=== PATIENT | male | born 1935 | race Hispanic/Latino ===

== ENCOUNTER → 2018-02-10 | Day surgery (SDC) | payer MEDICARE ==
[2018-02-03 12:48] LABS: BASOPHILS % 0.4 % (0.0-1.0); EOSINOPHILS # (AUTO) 0.1 (0.0-0.4); EOSINOPHILS % 1.7 % (0.0-6.0); HEMATOCRIT 40.6 % (38.2-49.6); HEMOGLOBIN 13.2 g/dL (14.0-18.0); LYMPHOCYTES # (AUTO) 2.5 (1.0-3.2); LYMPHOCYTES % 32.2 % (18.0-39.1); MEAN CORPUSCULAR HEMOGLOBIN 29.9 pg (28-32); MEAN CORPUSCULAR HGB CONC 32.5 g/dL (31-35); MEAN CORPUSCULAR VOLUME 92.1 fL (81-99); MONOCYTES # (AUTO) 0.8 (0.2-0.8); MONOCYTES % 10.8 % (4.4-11.3); NEUTROPHILS # (AUTO) 4.2 (2.1-6.9); NEUTROPHILS % 54.8 % (38.7-80.0); PLATELET COUNT 164 x10e3/uL (140-360); RED BLOOD COUNT 4.41 x10e6/uL (4.3-5.7); RED CELL DISTRIBUTION WIDTH 13.7 % (11.7-14.4)
[~2018-02-10] MED LIST: ASPIR 8181 MG PO; METOPROLOL TART25 MG PO; PROPOFOL IV EMULSION 10 MG/ML 50 ML VIAL ONE; SIMVASTATIN40 MG PO
--- OUTSIDE RECORDS SUMMARY | 2018-02-10 05:25 | XMS REPORT | Clinical Summary ---
Author Author [facility] Organization [facility] Address Unknown Phone Unavailable Care Team Providers Care Toll Mechanic Name Role Phone Isabell Perez PCP Unavailable Allergies No Known Allergies Medications End Date Status Medication Sig Dispensed Refills Start Date Active metoprolol (LOPRESSOR) 25 Take 25 mg by 0 MG tablet mouth 2 (two) times daily. Active simvastatin (ZOCOR) 40 MG Take 40 mg by 0 tablet mouth nightly. Active Problems Problem Noted Date Cholecystitis 08/29/2015 Gallstones 08/27/2015 Social History Date Tobacco Use Types Packs/Day Years Used Never Smoker Smokeless Tobacco: Never Used Alcohol Use Drinks/Week oz/Week Comments No Sex Assigned at Date Recorded Not on file Industry Job Start Date Occupation Not on file Not on file Not on file Travel End Travel History Travel Start No recent travel history available. Last Filed Vital Signs Not on file Plan of Treatment Not on file Results Not on fileafter 02/09/2017 Insurance Payer Benefit Subscriber ID Type Phone Address Plan / Group MEDICARE MEDICARE A xxxxxxxxxx Medicare B MEDICAID MEDICAID xxxxxxxxx Medicaid OF [place] Advance Directives For more information, please contact: [facility] [address] [place] [address] Date Inactivated Comments Code Status Date Activated 08/27/2015 12:47 PM Full Code 08/27/2015 7:24 AM This code status was determined by: Patient
--- OUTSIDE RECORDS SUMMARY | 2018-02-10 05:25 | XMS REPORT | Clinical Summary ---
Author Author [facility] Address Unknown Phone Unavailable Care Team Providers Care Union Laborer Name Role Phone Isabell Perez MD PCP Allergies Not on File Medications Not on file Active Problems Not on file Social History Date Tobacco Use Types Packs/Day Years Used Never Assessed Sex Assigned at Date Recorded Not on file Industry Job Start Date Occupation Not on file Not on file Not on file Travel End Travel History Travel Start No recent travel history available. Last Filed Vital Signs Not on file Plan of Treatment Health Maintenance Due Date Last Done Comments SHINGRIX VACCINE (1 of 2) 1984 ZOSTER VACCINE 1994 PNEUMOCOCCAL 08/17/1999 POLYSACCHARIDE VACCINE AGE 65 AND OVER PNEUMOCOCCAL-13 08/17/1999 INFLUENZA VACCINE 09/29/2017 Results Not on fileafter 02/09/2017 Insurance Payer Benefit Subscriber ID Type Phone Address Plan / Group MEDICARE MEDICARE xxxxxxxxxx Medicare [place] A [place] B MEDICAID MEDICAID xxxxxxxxx Medicaid Advance Directives Patient has advance care planning documents on file. For more information, mary lou luke contact: Harry Montiel [address] [place] [address]
--- OUTSIDE RECORDS SUMMARY | 2018-02-10 05:26 | XMS REPORT | Continuity of Care Document ---
Author Author [facility] Interface Address Unknown Phone Unavailable Problems Problem Status Onset Date Classification Date Reported Comments Source DIZZINESSM ACUTE CONFUSION Active 10/26/2017 [facility] STROKE LIKE SYMPTOMS Active 10/26/2017 [facility] FEVER / URINARY SYMPTOMS Active 12/17/2016 [facility] COMPLICATED UTI Active 12/17/2016 [facility] Insomnia<sup>6</sup> Active 04/05/2014 Problem 10/13/2017 Data migrated from [employer] on 09/05/14. [facility] Insomnia<sup>7</sup> Active 04/05/2014 Problem 12/24/2016 Data migrated from [employer] on 09/05/14. [facility] Chronic kidney disease stage 3<sup>3</sup> Active 11/02/2013 Problem 12/24/2016 Data migrated from [employer] on 07/28/14. [facility] Dermatitis<sup>3</sup> Active 04/05/2013 Problem 10/13/2017 Data migrated from [employer] on 07/28/14. [facility] Dermatitis<sup>4</sup> Active 04/05/2013 Problem 12/24/2016 Data migrated from [employer] on 07/28/14. [facility] BACK PAIN Active 06/06/2012 [facility] ABDOMINAL PAIN/BACK PAIN Active 05/04/2012 [facility] Aneurysm of aorta Resolved Problem [facility]/13[facility]<sup>1, 2</sup> Resolved Problem 10/13/2017 Data migrated from [employer] on 09/14/14. [facility] Bladder cancer Resolved Problem 10/13/2017 [facility] CKD , stage III(<span ID="[id number]">Confirmed</span>) Active Problem 10/13/2017 [facility] Deficiency of vitamin B12 Active Problem 10/13/2017 [facility] Essential hypertension<sup>4</sup> Active Problem 10/13/2017 Data migrated from [employer] on 07/28/14. [facility] History of aortic aneurysm repair Active Problem 10/13/2017 [facility] History of bladder cancer Active Problem 10/13/2017 [facility] History of renal carcinoma Active Problem 10/13/2017 [facility] Hyperlipidemia<sup>5</sup> Active Problem 10/13/2017 Data migrated from [employer] on 07/28/14. [facility] Cancer of right kidney. Resolved Problem 10/13/2017 [facility] Colon polyp Active Problem 10/13/2017 [facility] Prediabetes Active Problem 10/13/2017 [facility] Spinal stenosis<sup>7</sup> Active Problem 10/13/2017 Data migrated from [employer] on 07/28/14. [facility] Vitamin D deficiency Active Problem 10/13/2017 [facility] Aneurysm of aorta Resolved Problem 06/08/2012 [facility] Bladder cancer Resolved Problem 06/08/2012 [facility] Hypertension Active Problem 06/08/2012 [facility] Essential hypertension<sup>5</sup> Active Problem 12/24/2016 Data migrated from [employer] on 07/28/14. [facility] Hyperlipidemia<sup>6</sup> Active Problem 12/24/2016 Data migrated from [employer] on 07/28/14. [facility] Spinal stenosis<sup>8</sup> Active Problem 12/24/2016 Data migrated from [employer] on 07/28/14. [facility] URINARY TRACT INFECTION, SITE NOT SPECIF Active [facility] Medications Medication Details Route Status Patient Instructions Ordering Provider Order Date Source simvastatin 20 mg oral tablet 20 mg=1 tab, PO, Bedtime, # 90 tab, 1 Refill(s), Pharmacy: [facility]/pharmacy #[id number], dose decrease 40 from 20 mg Active 09/07/2017 [facility] metoprolol 25 mg oral tablet, extended release 25 mg=1 tab, PO, BID, # 180 tab, 1 Refill(s), Pharmacy: [facility]pharmacy #[id number] Active 09/07/2017 [facility] metoprolol 25 mg oral tablet, extended release 25 mg=1 tab, PO, BID, # 180 tab, 1 Refill(s), Pharmacy: [facility]/pharmacy #[id number] Active 02/02/2017 [facility] simvastatin 20 mg oral tablet 20 mg=1 tab, PO, Bedtime, # 90 tab, 1 Refill(s), Pharmacy: [facility]/pharmacy #[id number], dose decrease 40 from 20 mg Active 02/02/2017 [facility] Streptococcus pneumoniae serotype 1 capsular antigen diphtheria [id number] protein conjugate vaccine / Streptococcus pneumoniae serotype 14 capsular antigen diphtheria [id number] protein conjugate vaccine / Streptococcus pneumoniae serotype 18C capsular antigen d 0.5 mL, Route: IM, Drug Form: INJ, Daily, Start date: 12/21/16 14:45:00 CDT, Duration: 1 doses or times, Stop date: 12/21/16 14:45:00 CDTNotes: Shake well prior to use (Same as: Prevnar 13) Inactive 12/21/2016 [facility] amoxicillin 500 mg oral capsule 500 mg=1 cap, PO, TID, X 5 day, # 15 cap, 0 Refill(s), [id number] Active 12/21/2016 [facility] cefepime 1 gm, Route: IVPB, Q12H, Dosing Weight 73.182, kg, (CrCl >/=50 ml/min), Start date: 12/17/16 21:00:00 CDT, Duration: 5 day, Stop date: 12/22/16 9:00:00 CDT, ABX Indication: Urinary Tract Infection Inactive 12/18/2016 [facility] Simvastatin 40 mg, 1 tab, Route: PO, Drug form: TAB, Bedtime, Dosing Weight 73.182, kg, Start date: 12/17/16 21:00:00 CDT, Duration: 30 day, Stop date: 01/15/17 21:00:00 CSTNotes: (Same as: Zocor) No Longer Active 12/18/2016 [facility] cefepime 1 gm, Route: IV, [id number], Dosing Weight 73.182, kg, Start date: 12/17/16 20:00:00 CDT, Duration: 30 day, Stop date: 01/16/17 8:00:00 [employer]AL [employer]EL[employer], ABX Indication: Urinary Tract InfectionNotes: (Same As: Maxipime) MEDICATION WASTE Product Size: 1000 mg Product Wasted: ___ 0mg No Longer Active 12/18/2016 [facility] Docusate 100 mg, 1 cap, Route: PO, Drug form: CAP, BID, Dosing Weight 73.182, kg, Start date: 12/17/16 17:00:00 CDT, Duration: 30 day, Stop date: 01/16/17 9:00:00 CSTNotes: (Same as: Colace) (Do Not Crush) No Longer Active 12/17/2016 [facility] metoprolol extended release 25 mg, 1 tab, Route: PO, Drug form: ERTAB, BID, Start date: 12/17/16 17:00:00 CDT, Duration: 30 day, Stop date: 01/16/17 9:00:00 CSTNotes: (Same as: Toprol XL) Do Not Crush No Longer Active 12/17/2016 [facility] Vancomycin 1 ea, Route: MISC, ONCALL, Dosing Weight 73.182, kg, Start date: 12/17/16 16:00:00 CDT, day, Stop date: 12/17/16 16:00:00 CDT, Pharmacy to dose, ABX Indication: Urinary Tract Infection Inactive 12/17/2016 [facility] sodium chloride 0.9% 1000 ml INJ 1,000 mL 1,000 mL, Rate: 100 ml/hr, Infuse over: 10 hr, Route: IV, Dosing Weight 73.182 kg, Total Volume: 1,000, Start date: 12/17/16 15:36:00 CDT, Duration: 30 day, Stop date: 01/16/17 15:35:00 [employer] 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 12/17/2016 [facility] Ondansetron 4 mg, 2 mL, Route: IVP, Drug form: INJ, Q6H, Dosing Weight 73.182, kg, PRN Nausea & Vomiting, Start date: 12/17/16 15:35:00 CDT, Duration: 30 day, Stop date: 01/16/17 15:34:00 CSTNotes: (Same as: Zofran) MEDICATION WASTE Product Size: 4 mg Product Wasted: _0__ mg No Longer Active 12/17/2016 [facility] Acetaminophen 325 MG / Hydrocodone Bitartrate 5 MG Oral Tablet 1 tab, Route: PO, Drug Form: TAB, Dosing Weight 73.182, kg, Q4H, PRN Pain Score 4-6, Start date: 12/17/16 15:35:00 CDT, Duration: 30 day, Stop date: 01/16/17 15:34:00 CSTNotes: (Same as: Badger 325/5) Do not exceed 4gm/day of acetaminophen. No Longer Active 12/17/2016 [facility] cefepime 1 gm, Route: IVPB, ONCE, Dosing Weight 73.182, kg, Priority: STAT, Start date: 12/17/16 11:32:00 CDT, Duration: 1 doses or times, Stop date: 12/17/16 11:32:00 CDT, ABX Indication: Urinary Tract Infectio nNotes: (Same As: Maxipime) MEDICATION WASTE Product Size: 1000 mg Product Wasted: ___ mg Inactive 12/17/2016 [facility] Sodium Chloride 0.9% (Bolus) IV 1,000 mL, Infuse Over: 1 hr, Route: IV, ONCE, Priority: STAT, Dosing Weight 73.182 kg, Start date: 12/17/16 10:30:00 CDT, Duration: 1 doses or times, Stop date: 12/17/16 10:30:00 CDT Inactive 12/17/2016 [facility] Badger 10/325 oral tablet 1 tab, PO, Q6H, PRN, 24 tab, for pain, Substitution Allowed, Maintenance PO Active [place]- [facility] 06/06/2012 [facility] cefpodoxime 200 mg oral tablet 200 mg, 1 tab, PO, Q12H, 20 tab, Substitution Allowed, TAB [facility] Badger 5/325 oral tablet 1 tab, PO, Q4-6H, PRN, 30 tab, Substitution Allowed, Maintenance PO Active 06/06/2012 [facility] nabumetone 500 mg oral tablet 500 mg, 1 tab, PO, BID, 180 tab, Substitution Allowed, TAB PO Active 06/06/2012 [facility] simvastatin PO, Daily, 30 tab, Substitution Allowed PO Active 06/06/2012 [facility] Badger 5/325 oral tablet 1 tab, PO, Q4-6H, PRN, 15 tab, as needed for pain, Substitution Allowed, Maintenance PO Active [place] 05/05/2012 [facility] Badger 5/325 oral tablet 1 tab, Route: PO, Drug Form: TAB, Dosing Weight 80, kg, ONCE, Start date: 05/04/12 21:00:00, Stop date: 05/04/12 21:00:00 PO No Longer Active [place] 05/05/2012 [facility] NS (Bolus) IV 1000 mL 1,000 mL, Rate: 1,000 ml/hr, Infuse over: 1 hr, Route: IV, kg, Total Volume: 1,000, Priority: STAT, Start date: 05/04/12 16:04:00, Duration: 1 doses or times, Stop date: 05/04/12 17:03:00, Bolus DoseBolus Dose IV No Longer Active [place] 05/04/2012 [facility] morphine Sulfate 4 mg, 1 mL, Route: IVP, Drug form: INJ, ONCE, Dosing Weight 80, kg, Priority: STAT, Start date: 05/04/12 16:04:00, Stop date: 05/04/12 16:04:00 IVP No Longer Active [place] 05/04/2012 [facility] Visipaque 320mg/ml 87 mL, Route: IVP, Drug Form: SOLN, Dosing Weight 80, kg, ONCALL, STAT, Start date: 05/04/12 13:00:00, Duration: 1 doses or times, Weight=75 - 94kg -- "To be infused by Radiology Staff ONLY"We ight=75 - 94kg -- "To be infused by Radiology Staff ONLY" IVP No Longer Active [place] 05/04/2012 [facility] morphine Sulfate 4 mg, 1 mL, Route: IVP, Drug form: INJ, ONCE, Dosing Weight 80, kg, Priority: STAT, Start date: 05/04/12 11:16:00, Stop date: 05/04/12 11:16:00 IVP No Longer Active [place] 05/04/2012 [facility] Saline Flush 0.9% 5 mL, Route: IVP, Drug Form: INJ, Dosing Weight 80, kg, PRN, PRN Line Flush, Start date: 05/04/12 11:16:00, Duration: 24 hr, Stop date: 05/05/12 11:15:00 IVP No Longer Active [place] 05/04/2012 [facility] Sodium Chloride 0.9% IV 1,000 mL 1,000 mL, Rate: 125 ml/hr, Infuse over: 8 hr, Route: IV, Total Volume: 1,000, Start date: 05/04/12 11:16:00, Duration: 30 day, Stop date: 06/03/12 11:15:00 IV No Longer Active [place] 05/04/2012 [facility] metoprolol tartrate Substitution Allowed Active 05/04/2012 [facility] Allergies, Adverse Reactions, Alerts Substance Category Reaction Severity Reaction type Status Date Reported Comments Source Immunizations Immunization Date Given Site Status Last Updated Comments Source pneumococcal 13-valent vaccine 12/21/2016 Left deltoid completed [facility] influenza virus vaccine, inactivated<sup>1</sup> 11/23/2016 Left Deltoid completed [facility] Result Comment: Patient natalee din room ten minutes no allergic reaction. [facility] influenza virus vaccine, inactivated 01/01/2016 Left Deltoid completed [facility] influenza virus vaccine, inactivated 12/06/2014 Left Deltoid completed [facility] influenza virus vaccine, inactivated<sup>2</sup> 11/29/2013 Right Deltoid completed [facility] Result Comment: fluzone high dose [[id number]]. Migrated from OBS ; Data migrated from [employer] on 04/02/2015. [facility] pneumococcal 23-valent vaccine<sup>3</sup> 06/29/2013 Left Deltoid completed [facility] Result Comment: pneumovax 23 [[id number]]. Migrated from OBS VIS: Pneumovax 23: 12-04-08 ; Data migrated from [employer] on 04/02/2015. [facility] Results Order Name Results Value Reference Range Date Interpretation Comments Source Carotid artery Doppler bilat US Carotid artery Doppler bilat US Study: Carotid artery Doppler bilat US 10/26/2017 4:15 PM CDT Clinical Indication: - stroke; Comparison: None. TECHNIQUE: Quinn-scale, color Doppler and spectral Doppler of the carotid arteries was performed. Any reported ICA stenoses indirectly reference the distal internal carotid diameter as the denominator for stenosis measurement, utilizing consensus panel criteria. FINDINGS: RIGHT: There is no visible plaque formation. ICA PSV 58 cm/sec CCA PSV 62 cm/sec ICA/CCA ratio 0.9 Vertebral flow is antegrade. LEFT: There is no visible plaque formation. ICA PSV 62 cm/sec CCA PSV 62 cm/sec ICA/CCA ratio 1 Vertebral flow is antegrade. IMPRESSION: 1. RIGHT: ICA stenosis less than 50 % by velocity criteria. 2. LEFT: ICA stenosis less than 50 % by velocity criteria. End Impression Consensus panel Doppler US criteria for diagnosis of ICA stenosis. Stenosis (%) ICA PSV (cm/sec) ICA/CCA ratio <50 <125 <2.0 50-69 125-230 2.0-4.0 >70 but less than >230 >4.0 near occlusion Near occlusion High, low, or undetectable Variable SL: [id number] 10/26/2017 - - Read by: Alex Garvey MD Dictated Date/time: 10/26/17 16:28 Electronically Signed by: Alex Garvey MD 10/26/17 16:29 FINAL REPORT [facility] Brain contrast MRA Brain wo contrast MRA Clinical Indication: - vertigo, ataxia; Comparison: None Technique: Magnetic resonance angiography of the [place] was performed without contrast. 3D reconstructed images were created. FINDINGS: The petrous, cavernous, ophthalmic and supraclinoid portions of the bilateral internal carotid arteries have normal caliber. The A1 and A2 segments of the bilateral anterior cerebral arteries are unremarkable. The M1 and M2 segments of bilateral middle cerebral arteries and branches have normal caliber. The anterior communicating artery is unremarkable. Bilateral vertebral arteries, basilar artery, and posterior cerebral arteries are unremarkable. The right vertebral artery is more prominent than the left. Posterior communicating arteries are unremarkable. There is no aneurysm, vascular malformation, or significant atherosclerotic disease. IMPRESSION: Unremarkable MR angiography of the [place]. SL: [id number] 10/26/2017 - - Read by: Jonathan Breaux MD Dictated Date/time: 10/26/17 22:44 Electronically Signed by: Jonathan Breaux MD 10/26/17 22:46 FINAL REPORT [facility] Brain wo contrast MRI Brain wo contrast MRI Clinical Indication: - vertigo, ataxia; Comparison: None TECHNIQUE: MRI of the brain is performed without gadolinium contrast with axial T1, T2, FLAIR and diffusion weighted imaging along with sagittal T2, and coronal T1 weighted imaging. FINDINGS: BRAIN PARENCHYMA: There is mild generalized cortical atrophy. Moderate nonspecific periventricular white matter foci of increased T2 and FLAIR signal are seen, likely related to small vessel disease. There is no mass effect or midline shift. There are no extra-axial fluid collection, or intraparenchymal hemorrhage. The corpus callosum appears normal. There is no diffusion weighted imaging or ADC map abnormality to suggest acute/subacute ischemia. . There is small susceptibility artifact visualized within the left subinsular cortex.. CEREBELLOPONTINE REGIONS AND SKULL BASE: The cerebellopontine angles appear unremarkable. The skull base, craniocervical junction, and brainstem region are normal. The optic chiasm is normal. The sellar and pineal regions are unremarkable. VENTRICLES: The ventricles are normal in size and configuration. The basilar cisterns are normal. VESSELS: The venous sinuses are grossly unremarkable. The expected intracranial flow voids are present. ORBITS, VISUALIZED PARANASAL SINUSES AND MASTOIDS: The visualized orbits and paranasal sinuses are unremarkable. The mastoid air cells are clear. IMPRESSION: 1. No acute intracranial abnormality without acute stroke, hemorrhage or mass. 2. Generalized brain parenchymal atrophy with associated nonspecific periventricular white matter disease changes/small vessel disease. 3. Small hemosiderin lesion visualized within the left subinsular cortex most likely representing a subclinical small hemorrhage. SL: [id number] 10/26/2017 - - Read by: Jonathan Breaux MD Dictated Date/time: 10/26/17 22:39 Electronically Signed by: Jonathan Breaux MD 10/26/17 22:42 FINAL REPORT [facility] Neck wo contrast MRA Neck wo contrast MRA Clinical Indication: - vertigo. Comparison: None Technique: Magnetic resonance angiography of the neck was performed without gadolinium contrast with time of flight technique. 3-D maximum intensity projection images were obtained. Full and complete MRA neck without contrast exam was performed. FINDINGS: The visualized origins of the great vessels are unremarkable. Bilateral common carotid arteries are widely patent. Bilateral internal carotid arteries and carotid bulb regions are patent without significant stenosis by NASCET criteria. Bilateral external carotid arteries are patent. Bilateral vertebral arteries are patent without stenosis. The source images show no evidence of carotid or vertebral artery dissection. Any reported ICA stenoses directly reference the distal internal carotid diameter as the denominator for stenosis measurement. (NASCET criteria) IMPRESSION: No significant carotid arterial stenosis by NASCET criteria. No significant vertebral artery stenosis. SL: [id number] 10/26/2017 - - Read by: Jyothi Rodriguez MD Dictated Date/time: 10/26/17 23:00 Electronically Signed by: Jyothi Rodriguez MD 10/26/17 23:04 FINAL REPORT [facility] Chest 1view DX Chest 1view DX EXAM: XR CHEST 1 VIEW DATE: 10/26/2017 12:36 PM CDT : 1935; Age: 82 years y/o Male INDICATION: - dizziness, confusion COMPARISON: 05/04/2012 TECHNIQUE: AP chest. FINDINGS/IMPRESSION: Lines, tubes and hardware: None. The heart size is normal for technique. The mediastinal contours are normal. Pulmonary vascularity is normal. Small granuloma within the right lung base otherwise lungs are clear. SL: [id number] 10/26/2017 - - Read by: Josephine Lester Dictated Date/time: 10/26/17 13:32 Electronically Signed by: Josephine Lester 10/26/17 13:33 FINAL REPORT [facility] Brain Stroke wo contrast CT Brain Stroke wo contrast CT Patient Name: ANNY PANDEY : 1935; Age: 82 years y/o Male MR: [id number] Study: Brain Stroke wo contrast CT 10/26/2017 12:36 PM CDT Ordering Physician: Humza Hurley Clinical Indication: - dizziness, confusion; Comparison: None TECHNIQUE: CT images were obtained from the foramen magnum to the vertex without the use of intravenous contrast on a multidetector CT. Coronal and sagittal reconstructions were obtained. CT imaging performed at this location utilizes radiation dose optimization techniques which include one or more of the following: -Automated exposure control -Adjustment of the mA and/or kV according to patient size -Use of iterative reconstruction technique CT Radiation Dose DLP 981 mGy-cm FINDINGS: There is no evidence of acute intracranial hemorrhage, subacute territorial infarct, mass effect, midline shift, hyperdense extra-axial fluid collection, hydrocephalus or other acute abnormalities. Minimal prominence of bifrontal extra-axial spaces likely related to volume loss, small subdural hygromas not excluded.. There is moderate generalized cerebral volume loss with associated ventricular prominence. There are moderate nonspecific supratentorial white matter ill- defined hypodensities likely representing chronic small vessel ischemic changes in this age. There are no chronic territorial infarcts. Multiple lacunar insults are seen in the frontoparietal white matter and basal ganglia. There are calcifications in the carotid siphons and intradural vertebral arteries. The calvarium, paranasal sinuses and mastoids are unremarkable. IMPRESSION: No evidence of acute intracranial hemorrhage. Moderate chronic microangiopathy. Multiple lacunar insults in the deep white matter and basal ganglia. Prominence of bifrontal extra-axial spaces likely related to volume loss, small subdural hygromas not excluded. The findings were called to Dr. Grayson in the ED at 1:17 PM on 10/26/2017. If there is further concern for intracranial pathology or acute stroke, further assessment with an MRI of the brain should be considered. SL: [id number] 10/26/2017 - - Read by: Malinda Hawkinsap Dictated Date/time: 10/26/17 13:13 Electronically Signed by: Malinda Hawkins 10/26/17 13:17 FINAL REPORT [facility] TOXICOLOGY Vanco Tr 7.5 ug/ml 12/19/2016 [facility] TOXICOLOGY Vanco Tr TND 1630 12/19/2016 [facility] CHEM PANEL eGFR 82 mL/min/1.73m2 12/19/2016 Result Comment: The eGFR is calculated using the CKD-EPI formula. In most young, healthy individuals the eGFR will be >90 mL/min/1.73m2. The eGFR declines with age. An eGFR of 60-89 may be normal in some populations, particularly the elderly, for whom the CKD-EPI formula has not been extensively validated. Use of the eGFR is not recommended in the following populations: Individuals with unstable creatinine concentrations, including patients and those with serious co-morbid conditions. Patients with extremes in muscle mass or diet. The data above are obtained from the National Kidney Disease Education Program (NKDEP) which additionally recommends that when the eGFR is used in patients with extremes of body mass index for purposes of drug dosing, the eGFR should be multiplied by the estimated BMI. [facility] CHEM PANEL Calcium Lvl 7.8 mg/dL 8.5 - 10.5 12/19/2016 [facility] CHEM PANEL AGAP 13.0 meq/L 10.0 - 20.0 12/19/2016 [facility] CHEM PANEL Chloride Lvl 107 meq/L 95 - 109 12/19/2016 [facility] CHEM PANEL CO2 22 meq/L 24 - 32 12/19/2016 [facility] CHEM PANEL Potassium Lvl 4.0 meq/L 3.5 - 5.1 12/19/2016 [facility] CHEM PANEL Creatinine Lvl 0.84 mg/dL 0.50 - 1.40 12/19/2016 [facility] CHEM PANEL Sodium Lvl 138 meq/L 135 - 145 12/19/2016 [facility] CHEM PANEL Glucose Lvl 81 mg/dL 70 - 99 12/19/2016 [facility] CHEM PANEL BUN 17 mg/dL 7 - 22 12/19/2016 [facility] URINE AND STOOL Occult Bld Stl Negative (12/17/16 12:49 PM) Negative 12/17/2016 [facility] CHEM PANEL Lipase Lvl 106 unit/L 73 - 393 12/17/2016 [facility] CHEM PANEL eGFR 46 mL/min/1.73m2 12/17/2016 Result Comment: The eGFR is calculated using the CKD-EPI formula. In most young, healthy individuals the eGFR will be >90 mL/min/1.73m2. The eGFR declines with age. An eGFR of 60-89 may be normal in some populations, particularly the elderly, for whom the CKD-EPI formula has not been extensively validated. Use of the eGFR is not recommended in the following populations: Individuals with unstable creatinine concentrations, including patients and those with serious co-morbid conditions. Patients with extremes in muscle mass or diet. The data above are obtained from the National Kidney Disease Education Program (NKDEP) which additionally recommends that when the eGFR is used in patients with extremes of body mass index for purposes of drug dosing, the eGFR should be multiplied by the estimated BMI. [facility] CHEM PANEL Alk Phos 63 unit/L 39 - 136 12/17/2016 [facility] CHEM PANEL AST 33 unit/L 0 - 37 12/17/2016 [facility] CHEM PANEL ALT 20 unit/L 0 - 65 12/17/2016 [facility] CHEM PANEL Bili Total 0.6 mg/dL 0.2 - 1.3 12/17/2016 [facility] CHEM PANEL A/G Ratio 0.7 0.7 - 1.6 12/17/2016 [facility] CHEM PANEL Globulin 4.2 g/dL 2.7 - 4.2 12/17/2016 [facility] CHEM PANEL Albumin Lvl 3.1 g/dL 3.5 - 5.0 12/17/2016 [facility]M PANEL Glucose Lvl 125 mg/dL 70 - 99 12/17/2016 [facility] Total Protein 7.3 g/dL 6.4 - 8.4 12/17/2016 [facility] CHEM PANEL AGAP 15.0 meq/L 10.0 - 20.0 12/17/2016 [facility] CHEM PANEL Calcium Lvl 8.5 mg/dL 8.5 - 10.5 12/17/2016 [facility] CHEM PANEL CO2 24 meq/L 24 - 32 12/17/2016 [facility] PANEL Chloride Lvl 97 meq/L 95 - 109 12/17/2016 [facility] PAN[facility] Potassium Lvl 4.0 meq/L 3.5 - 5.1 12/17/2016 [facility] PANEL Creatinine Lvl 1.40 mg/dL 0.50 - 1.40 12/17/2016 [facility]M PANEL Sodium Lvl 132 meq/L 135 - 145 12/17/2016 [facility] PAN[facility] B/C Ratio 16 6 - 25 12/17/2016 [facility] CHEM PANEL BUN 22 mg/dL 7 - 22 12/17/2016 [facility] HEMATOLOGY Monocytes # 1.0 K/CMM 0.0 - 0.8 12/17/2016 [facility] HEMATOLOGY Segs-Bands # 12.8 K/CMM 1.5 - 8.1 12/17/2016 [facility] HEMATOLOGY Lymphocytes # 0.5 K/CMM 1.0 - 5.5 12/17/2016 [facility] HEMATOLOGY Monocytes 7.0 % 2.0 - 12.0 12/17/2016 [facility] HEMATOLOGY Basophils 0.1 % 0.0 - 1.0 12/17/2016 [facility] HEMATOLOGY Lymphocytes 3.4 % 20.0 - 40.0 12/17/2016 [facility] HEMATOLOGY Segs 89.5 % 45.0 - 75.0 12/17/2016 [facility] HEMATOLOGY RDW 14.1 % 11.5 - 14.5 12/17/2016 [facility] HEMATOLOGY MCHC 33.2 g/dL 32.0 - 36.0 12/17/2016 [facility] HEMATOLOGY MCH 30.0 pg 27.0 - 31.0 12/17/2016 [facility] HEMATOLOGY MCV 90.4 fL 80.0 - 94.0 12/17/2016 [facility] HEMATOLOGY MPV 8.0 fL 7.4 - 10.4 12/17/2016 [facility] HEMATOLOGY Platelet 122 K/CMM 133 - 450 12/17/2016 [facility] HEMATOLOGY Hct 37.9 % 42.0 - 54.0 12/17/2016 [facility] HEMATOLOGY Hgb 12.6 g/dL 14.0 - 18.0 12/17/2016 [facility] HEMATOLOGY RBC 4.20 M/CMM 4.70 - 6.10 12/17/2016 [facility] HEMATOLOGY WBC 14.3 K/CMM 3.7 - 10.4 12/17/2016 [facility] URINE AND STOOL UA [place] Yeast Occasional /HPF None Seen /HPF 12/17/2016 [facility] URINE AND STOOL UA Hyal Cast 1 /LPF 0 - 2 12/17/2016 [facility] URINE AND STOOL UA Bacteria Occasional /HPF None Seen /HPF 12/17/2016 [facility] URINE AND STOOL UA RBC 4 /HPF 0 - 2 12/17/2016 [facility] URINE AND STOOL UA Sq Epi Occasional /LPF Few /LPF 12/17/2016 [facility] URINE AND STOOL UA WBC 15 /HPF 0 - 5 12/17/2016 [facility] URINE AND STOOL UA Leuk Est Moderate *ABN* (12/17/16 10:36 AM) Negative 12/17/2016 [facility] URINE AND STOOL UA Blood Moderate *ABN* (12/17/16 10:36 AM) Negative 12/17/2016 [facility] URINE AND STOOL UA Nitrite Negative (12/17/16 10:36 AM) Negative 12/17/2016 [facility] URINE AND STOOL UA Glucose Negative mg/dL Negative mg/dL 12/17/2016 [facility] URINE AND STOOL UA Bili Negative *NA* (12/17/16 10:36 AM) Negative 12/17/2016 [facility] URINE AND STOOL UA Ketones Trace mg/dL Negative mg/dL 12/17/2016 [facility] URINE AND STOOL UA pH 7.0 5.0 - 8.0 12/17/2016 [facility] URINE AND STOOL UA Spec Grav 1.010 <=1.030 12/17/2016 [facility] URINE AND STOOL UA Protein Negative mg/dL Negative mg/dL 12/17/2016 [facility] URINE AND STOOL UA Turbidity Clear (12/17/16 10:36 AM) Clear 12/17/2016 [facility] URINE AND STOOL UA Urobilinogen <=1.0 mg/dL 0.1 - 1.0 12/17/2016 [facility] URINE AND STOOL UA Color Ltyellow 12/17/2016 [facility] Microbiology Culture: Urine 06/06/2012 [facility] URINALYSIS UA Bacteria Few /HPF (06/06/2012 15:16:42) None Seen 06/06/2012 Normal [facility] URINALYSIS UA RBC 0-2 /HPF (06/06/2012 15:16:42) 0 - 2 06/06/2012 Normal [facility] URINALYSIS UA Amorph Tiana Few /HPF *ABN* (06/06/2012 15:16:42) None Seen 06/06/2012 ABN [facility] URINALYSIS UA Renal Epi 3-5 /LPF *ABN* (06/06/2012 15:16:42) 06/06/2012 ABN [facility] URINALYSIS UA WBC 3-5 /HPF (06/06/2012 15:16:42) None Seen 06/06/2012 Normal [facility] URINALYSIS UA Sq Epi None Seen (06/06/2012 15:16:42) Few 06/06/2012 Normal [facility] URINALYSIS Micro? Performed (06/06/2012 15:16:42) 06/06/2012 Normal [facility] URINALYSIS UA Leuk Est Trace *ABN* (06/06/2012 15:16:42) Negative 06/06/2012 ABN [facility] URINALYSIS UA Glucose Negative (06/06/2012 15:16:42) Negative 06/06/2012 Normal [facility] URINALYSIS UA Protein Trace *ABN* (06/06/2012 15:16:42) Negative 06/06/2012 ABN [facility] URINALYSIS UA pH 8.0 5.0 - 8.0 06/06/2012 Normal [facility] URINALYSIS UA Nitrite Positive *ABN* (06/06/2012 15:16:42) Negative 06/06/2012 ABN [facility] URINALYSIS UA Urobilinogen 0.2 EU/dL 0.1 - 1.0 06/06/2012 Normal [facility] URINALYSIS UA Blood Trace *ABN* (06/06/2012 15:16:42) Negative 06/06/2012 ABN [facility] URINALYSIS UA Ketones Negative *NA* (06/06/2012 15:16:42) Negative 06/06/2012 NA [facility] URINALYSIS UA Bili Negative *NA* (06/06/2012 15:16:42) Negative 06/06/2012 NA [facility] URINALYSIS UA Spec Grav 1.010 <=1.030 06/06/2012 Normal [facility] URINALYSIS UA Turbidity Clear (06/06/2012 15:16:42) Clear 06/06/2012 Normal [facility] URINALYSIS UA Color Yellow *NA* (06/06/2012 15:16:42) Yellow 06/06/2012 NA [facility] CHEMISTRY Troponin-I null 0.00 - 0.40 05/04/2012 Normal [facility] CHEMISTRY Total CK 131 unit/L 12 - 191 05/04/2012 Normal [facility] CHEMISTRY eGFR 72 mL/min/1.73m2 05/04/2012 NA 1Result Comment: The eGFR is calculated using the CKD-EPI formula. In most young, healthy individuals the eGFR will be >90 mL/min/1.73m2. The eGFR declines with age. An eGFR of 60-89 may be normal in some populations, particularly the elderly, for whom the CKD-EPI formula has not been extensively validated. Use of the eGFR is not recommended in the following populations: Individuals with unstable creatinine concentrations, including patients and those with serious co-morbid conditions. Patients with extremes in muscle mass or diet. The data above are obtained from the National Kidney Disease Education Program (NKDEP) which additionally recommends that when the eGFR is used in patients with extremes of body mass index for purposes of drug dosing, the eGFR should be multiplied by the estimated BMI. [facility] CHEMISTRY Calcium Lvl 8.6 mg/dL 8.5 - 10.5 05/04/2012 Normal [facility] CHEMISTRY CO2 26 meq/L 24 - 32 05/04/2012 Normal [facility] CHEMISTRY Chloride Lvl 103 meq/L 95 - 109 05/04/2012 Normal [facility] CHEMISTRY Potassium Lvl 4.3 meq/L 3.5 - 5.1 05/04/2012 Normal [facility] CHEMISTRY Glucose Lvl 96 mg/dL 70 - 99 05/04/2012 Normal 2Interpretive Data: Adult reference range values reflect the clinical guidelines of the [place] [employer]. [facility] CHEMISTRY BUN 12 mg/dL 7 - 22 05/04/2012 Normal [facility] CHEMISTRY Creatinine Lvl 1.0 mg/dL 0.5 - 1.4 05/04/2012 Normal [facility] CHEMISTRY Sodium Lvl 140 meq/L 135 - 145 05/04/2012 Normal [facility] CHEMISTRY AST 25 unit/L 0 - 37 05/04/2012 Normal [facility] CHEMISTRY Albumin Lvl 3.7 g/dL 3.5 - 5.0 05/04/2012 Normal [facility] CHEMISTRY ALT 17 unit/L 0 - 65 05/04/2012 Normal [facility] CHEMISTRY Alk Phos 84 unit/L 39 - 136 05/04/2012 Normal [facility] CHEMISTRY Bili Total 0.5 mg/dL 0.2 - 1.3 05/04/2012 Normal [facility] CHEMISTRY Total Protein 7.5 g/dL 6.4 - 8.4 05/04/2012 Normal [facility] CHEMISTRY B/C Ratio 12 6 - 25 05/04/2012 Normal [facility] CHEMISTRY AGAP 15.3 meq/L 10.0 - 20.0 05/04/2012 Normal [facility] CHEMISTRY Globulin 3.8 g/dL 2.0 - 4.0 05/04/2012 Normal [facility] CHEMISTRY A/G Ratio 1.0 0.7 - 1.6 05/04/2012 Normal [facility] CHEMISTRY Lipase Lvl 158 unit/L 73 - 393 05/04/2012 Normal [facility] HEMATOLOGY PTT 34.2 s 22.9 - 35.8 05/04/2012 Normal 4Interpretive Data: Heparin Therapeutic Range: 57 - 92 Seconds [facility] HEMATOLOGY MPV 7.8 fL 7.4 - 10.4 05/04/2012 Normal [facility] HEMATOLOGY Platelet 158 K/CMM 133 - 450 05/04/2012 Normal [facility] HEMATOLOGY RDW 13.1 % 11.5 - 14.5 05/04/2012 Normal [facility] HEMATOLOGY MCHC 33.7 g/dL 32.0 - 36.0 05/04/2012 Normal [facility] HEMATOLOGY MCH 31.1 pg 27.0 - 31.0 05/04/2012 [facility] HEMATOLOGY MCV 92.3 fL 80.0 - 94.0 05/04/2012 Normal [facility] HEMATOLOGY RBC 4.58 M/CMM 4.70 - 6.10 05/04/2012 LOW [facility] HEMATOLOGY WBC 7.0 K/CMM 3.7 - 10.4 05/04/2012 Normal [facility] HEMATOLOGY Hct 42.3 % 42.0 - 54.0 05/04/2012 Normal [facility] HEMATOLOGY Hgb 14.3 g/dL 14.0 - 18.0 05/04/2012 Normal [facility] HEMATOLOGY Eosinophils # 0.0 K/CMM 0.0 - 0.5 05/04/2012 [facility] HEMATOLOGY Monocytes # 1.0 K/CMM 0.0 - 0.8 05/04/2012 [facility] HEMATOLOGY Basophils # 0.0 K/CMM 0.0 - 0.2 05/04/2012 [facility] HEMATOLOGY Lymphocytes # 2.3 K/CMM 1.0 - 5.5 05/04/2012 Normal [facility] HEMATOLOGY Segs-Bands # 3.7 K/CMM 1.5 - 8.1 05/04/2012 Normal [facility] HEMATOLOGY Basophils 0.3 % 0.0 - 1.0 05/04/2012 Normal [facility] HEMATOLOGY Lymphocytes 32.7 % 20.0 - 40.0 05/04/2012 [facility] HEMATOLOGY Eosinophils 0.6 % 0.0 - 4.0 05/04/2012 Normal [facility] HEMATOLOGY Monocytes 14.0 % 2.0 - 12.0 05/04/2012 [facility] HEMATOLOGY Segs 52.4 % 45.0 - 75.0 05/04/2012 Normal [facility] HEMATOLOGY PT 14.8 s 12.0 - 14.7 05/04/2012 [facility] HEMATOLOGY INR 1.14 0.85 - 1.17 05/04/2012 Normal 3Interpretive Data: RECOMMENDED RANGES FOR PROTIME INR: 2.0-3.0 for most medical and surgical thromboembolic states. 2.5-3.5 for artificial heart valves and recurrent embolism. INR SHOULD BE USED ONLY FOR PATIENTS ON STABLE ANTICOAGULANT THERAPY. [facility] CHEMISTRY Lactic Acid Lvl 1.3 mMol/L 0.5 - 2.2 05/04/2012 Normal [facility] URINALYSIS UA RBC 0-2 /HPF (05/04/2012 11:05:24) 0 - 2 05/04/2012 Normal [facility] URINALYSIS UA Mucus None Seen (05/04/2012 11:05:24) None Seen 05/04/2012 Normal [facility] URINALYSIS UA Bacteria Occasional /HPF (05/04/2012 11:05:24) None Seen 05/04/2012 Normal [facility] URINALYSIS UA WBC 0-2 /HPF (05/04/2012 11:05:24) None Seen 05/04/2012 Normal [facility] URINALYSIS UA Sq Epi None Seen (05/04/2012 11:05:24) Few 05/04/2012 Normal [facility] URINALYSIS Micro? Performed (05/04/2012 11:05:24) 05/04/2012 Normal [facility] URINALYSIS UA Urobilinogen 0.2 EU/dL 0.1 - 1.0 05/04/2012 Normal [facility] URINALYSIS UA Leuk Est Negative (05/04/2012 11:05:24) Negative 05/04/2012 Normal [facility] URINALYSIS UA Nitrite Negative (05/04/2012 11:05:24) Negative 05/04/2012 Normal [facility] URINALYSIS UA Ketones Negative *NA* (05/04/2012 11:05:24) Negative 05/04/2012 NA [facility] URINALYSIS UA Bili Negative *NA* (05/04/2012 11:05:24) Negative 05/04/2012 NA [facility] URINALYSIS UA Blood Small *ABN* (05/04/2012 11:05:24) Negative 05/04/2012 ABN [facility] URINALYSIS UA pH 6.5 5.0 - 8.0 05/04/2012 Normal [facility] URINALYSIS UA Protein Negative (05/04/2012 11:05:24) Negative 05/04/2012 Normal [facility] URINALYSIS UA Glucose Negative (05/04/2012 11:05:24) Negative 05/04/2012 Normal [facility] URINALYSIS UA Color Yellow *NA* (05/04/2012 11:05:24) Yellow 05/04/2012 NA [facility] URINALYSIS UA Spec Grav 1.012 <=1.030 05/04/2012 Normal [facility] URINALYSIS UA Turbidity Clear (05/04/2012 11:05:24) Clear 05/04/2012 Normal [facility] Vital Signs Vital Sign Value Date Comments Source Height 170.18 cm 09/07/2017 [facility] Weight 72.273 09/07/2017 [facility] BMI Calculated 24.96 09/07/2017 [facility] Heart Rate 62 09/07/2017 [facility] Systolic (mm Hg) 123 09/07/2017 [facility] Diastolic (mm Hg) 70 09/07/2017 [facility] Temperature Oral (F) 97.3 F 09/07/2017 [facility] Respitory Rate 16 09/07/2017 [facility] BMI Calculated 25.96 06/07/2017 [facility] Weight 72.955 06/07/2017 [facility] Height 167.64 cm 06/07/2017 [facility] Temperature Oral (F) 97.4 F 06/07/2017 [facility] Respitory Rate 16 06/07/2017 [facility] Heart Rate 82 06/07/2017 [facility] Systolic (mm Hg) 116 06/07/2017 [facility] Diastolic (mm Hg) 73 06/07/2017 [facility] BMI Calculated 24.84 02/02/2017 [facility] Weight 71.932 02/02/2017 [facility] Temperature Oral (F) 97.6 F 02/02/2017 [facility] Height 170.18 cm 02/02/2017 [facility] Heart Rate 66 02/02/2017 [facility] Respitory Rate 14 02/02/2017 [facility] Systolic (mm Hg) 108 02/02/2017 [facility] Diastolic (mm Hg) 59 02/02/2017 [facility] Systolic (mm Hg) 146 12/21/2016 [facility] Diastolic (mm Hg) 72 12/21/2016 [facility] Temperature Oral (F) 98.0 F 12/21/2016 [facility] Respitory Rate 16 12/21/2016 [facility] Heart Rate 57 12/21/2016 [facility] Respitory Rate 16 12/21/2016 [facility] Heart Rate 56 12/21/2016 [facility] Temperature Oral (F) 97.4 F 12/21/2016 [facility] Systolic (mm Hg) 145 12/21/2016 [facility] Diastolic (mm Hg) 63 12/21/2016 [facility] Heart Rate 59 12/21/2016 [facility] Temperature Oral (F) 98.5 F 12/21/2016 [facility] Systolic (mm Hg) 139 12/21/2016 [facility] Diastolic (mm Hg) 72 12/21/2016 [facility] Respitory Rate 16 12/21/2016 [facility] Weight 73.636 12/17/2016 [facility] BMI Calculated 25.43 12/17/2016 [facility] Height 170.18 cm 12/17/2016 [facility] Height 170.18 cm 12/17/2016 [facility] Weight 73.182 12/17/2016 [facility] BMI Calculated 25.27 12/17/2016 [facility] Height 177.8 cm 06/06/2012 [facility] Weight 77.273 06/06/2012 [facility] Weight 80 05/04/2012 [facility] Encounters Location Location Details Encounter Type Encounter Number Reason For Visit Attending Provider ADM Date DC Date Status Source [facility] Emergency [id number] DAMIAN LISA 05/04/2012 05/04/2012 Active [facility] Emergency [id number] BECCA LAWRENCE 06/06/2012 06/06/2012 Active [facility] Outpatient [id number] JOSHUA ELLIS 12/06/2014 Active [facility] Outpatient [id number] JOSHUA ELLIS 06/06/2015 Active [facility] Outpatient [id number] JOSHUA ELLIS 10/10/2015 Active [facility] Outpatient [id number] JOSHUA ELLIS 12/10/2015 Active [facility] Outpatient [id number] JOSHUA ELLIS 12/30/2015 Active [facility] Outpatient [id number] JOSHUA ELLIS 01/01/2016 Active [facility] Outpatient [id number] JOSHUA ELLIS 06/23/2016 Active [facility] Outpatient [id number] JOSHUA ELLIS 10/20/2016 Active [facility] Outpatient [id number] NURSE VISIT 11/23/2016 Active [facility] Outpatient [id number] JOSHUA ELLIS 12/16/2016 Active [facility] Inpatient [id number] Joshua Ken 12/17/2016 12/21/2016 [facility] Outpatient [id number] JOSHUA ELLIS 01/08/2017 Active [facility] Outpatient [id number] JOSHUA RHONDA 02/02/2017 Active [facility] Outpatient [id number] Joshua Rhonda 02/02/2017 02/03/2017 [facility] Outpatient [id number] JOSHUA RHONDA 06/07/2017 Active [facility] Outpatient [id number] Joshua Rhonda 06/07/2017 06/08/2017 [facility] Outpatient [id number] JOSHUA RHONDA 09/07/2017 Active [facility] Outpatient [id number] Joshua Rhonda 09/07/2017 09/08/2017 [facility] Outpatient [id number] NURSE VISIT 12/14/2017 Active [facility] Outpatient [id number] JOSHUA RHONDA 01/04/2018 Active [facility] Outpatient [id number] JOSHUA RHONDA 01/18/2018 Active [facility] Procedures Procedure Code Date Perfomer Comments Source Cholecystectomy [id number] 08/27/2015 [facility] Laparoscopic cholecystectomy [id number] 08/27/2015 [facility] Cholecystectomy [id number] 08/27/2015 [facility] Laparoscopic cholecystectomy [id number] 08/27/2015 [facility] Eye examination [id number] 11/29/2014 [facility] Eye examination [id number] 11/29/2014 [facility] Colonoscopy<sup>1</sup> [id number] 11/29/2012 Polypectomy Tubular Adenoma. Next 3 yrs. [facility] Colonoscopy<sup>1</sup> [id number] 11/29/2012 Polypectomy Tubular Adenoma. Next 3 yrs. 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 [id number] 03/01/2007 [facility] AAA - Repair of abdominal aortic aneurysm using straight graft [id number] 03/01/2007 [facility] Cystectomy<sup>2</sup> [id number] 03/01/1999 Urothelia carcinoma/Bladder cancer [facility] Prostatectomy<sup>3</sup> [id number] 03/01/1999 Due to bladder cancer [facility] Cystectomy<sup>2</sup> [id number] 03/01/1999 Urothelia carcinoma/Bladder cancer [facility] Prostatectomy<sup>3</sup> [id number] 03/01/1999 Due to bladder cancer [facility] Hernia repair<sup>4</sup> [id number] 03/01/1986 Vertial Hernia [facility] Hernia repair<sup>4</sup> [id number] 03/01/1986 Vertial Hernia [facility] Nephrectomy<sup>5</sup> [id number] 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
--- OUTSIDE RECORDS SUMMARY | 2018-02-10 05:27 | XMS REPORT | CCD ---
Author Author Auto Generated Organization [facility] Address Unknown Phone Unavailable Care Team Providers Care Head Refrigerating Engineer Name Role Phone Ryan Ryan CP Allergies, Adverse Reactions, Alerts Substance Reaction Status NKDA Active Problem List Condition Effective Dates Status Aneurysm of aorta Resolved Bladder cancer Resolved Hypertension Active Medications Medication Instructions Start Date End Date Status metoprolol tartrate Substitution Allowed 05/04/2012 Ordered NS (Bolus) IV 1000 1,000 mL, Rate: 1,000 ml/hr, Infuse 05/04/2012 05/04/2012 Completed mL over: 1 hr, Route: IV, kg, Total Volume: 1,000, Priority: STAT, Start date: 05/04/12 16:04:00, Duration: 1 doses or times, Stop date: 05/04/12 17:03:00, Bolus Dose Bolus Dose morphine Sulfate 4 mg, 1 mL, Route: IVP, Drug form: 05/04/2012 05/04/2012 Completed INJ, ONCE, Dosing Weight 80, kg, Priority: STAT, Start date: 05/04/12 16:04:00, Stop date: 05/04/12 16:04:00 [place] 5/325 oral 1 tab, Route: PO, Drug Form: TAB, 05/04/2012 05/04/2012 Completed tablet Dosing Weight 80, kg, ONCE, Start date: 05/04/12 21:00:00, Stop date: 05/04/12 21:00:00 morphine Sulfate 4 mg, 1 mL, Route: IVP, Drug form: 05/04/2012 05/04/2012 Completed INJ, ONCE, Dosing Weight 80, kg, Priority: STAT, Start date: 05/04/12 11:16:00, Stop date: 05/04/12 11:16:00 Saline Flush 0.9% 5 mL, Route: IVP, Drug Form: INJ, 05/04/2012 05/05/2012 Discontinued Dosing Weight 80, kg, PRN, PRN Line Flush, Start date: 05/04/12 11:16:00, Duration: 24 hr, Stop date: 05/05/12 11:15:00 Sodium Chloride 0.9% 1,000 mL, Rate: 125 ml/hr, Infuse 05/04/2012 05/05/2012 Discontinued IV 1,000 mL over: 8 hr, Route: IV, Total Volume: 1,000, Start date: 05/04/12 11:16:00, Duration: 30 day, Stop date: 06/03/12 11:15:00 Visipaque 320mg/ml 87 mL, Route: IVP, Drug Form: SOLN, 05/04/2012 05/04/2012 Completed Dosing Weight 80, kg, ONCALL, STAT, Start date: 05/04/12 13:00:00, Duration: 1 doses or times, Weight=75 - 94kg -- "To be infused by Radiology Staff ONLY" Weight=75 - 94kg -- "To be infused by Radiology Staff ONLY" [place] 5/325 oral 1 tab, PO, Q4-6H, PRN, 15 tab, as 05/04/2012 Ordered tablet needed for pain, Substitution Allowed, Maintenance Vital Signs Most recent to oldest [Reference Range]: 1 Weight 80 kg (05/04/2012 10:51:00) Results URINALYSIS Most recent to oldest [Reference Range]: 1 UA Turbidity [Clear] Clear (05/04/2012 11:05:24) UA Color [Yellow] Yellow *NA* (05/04/2012 11:05:24) UA pH [5.0-8.0] 6.5 (05/04/2012 11:05:24) UA Spec Grav [<=1.030] 1.012 (05/04/2012 11:05:24) UA Glucose [Negative] Negative (05/04/2012 11:05:24) UA Blood [Negative] Small *ABN* (05/04/2012 11:05:24) UA Ketones [Negative] Negative *NA* (05/04/2012 11:05:24) UA Protein [Negative] Negative (05/04/2012 11:05:24) UA Urobilinogen [0.1-1.0 EU/dL] 0.2 EU/dL (05/04/2012 11:05:24) UA Bili [Negative] Negative *NA* (05/04/2012 11:05:24) UA Leuk Est [Negative] Negative (05/04/2012 11:05:24) UA Nitrite [Negative] Negative (05/04/2012 11:05:24) UA WBC [None Seen /HPF] 0-2 /HPF (05/04/2012 11:05:24) UA RBC [0-2 /HPF] 0-2 /HPF (05/04/2012 11:05:24) UA Bacteria [None Seen /HPF] Occasional /HPF (05/04/2012 11:05:24) UA Sq Epi [Few] None Seen (05/04/2012 11:05:24) UA Mucus [None Seen] None Seen (05/04/2012 11:05:24) Micro? Performed (05/04/2012 11:05:24) CHEMISTRY Most recent to oldest [Reference Range]: 1 Sodium Lvl [135-145 mEq/L] 140 mEq/L (05/04/2012 11:09:57) Potassium Lvl [3.5-5.1 mEq/L] 4.3 mEq/L (05/04/2012 11:09:57) Chloride Lvl [95-109 mEq/L] 103 mEq/L (05/04/2012 11:09:57) CO2 [24-32 mEq/L] 26 mEq/L (05/04/2012 11:09:57) AGAP [10.0-20.0 mEq/L] 15.3 mEq/L (05/04/2012 11:09:57) Creatinine Lvl [0.5-1.4 mg/dL] 1.0 mg/dL (05/04/2012 11:09:57) eGFR 72 mL/min/1.73m2 1 *NA* (05/04/2012 11:09:57) BUN [7-22 mg/dL] 12 mg/dL (05/04/2012 11:09:57) B/C Ratio [6-25] 12 (05/04/2012 11:09:57) Glucose Lvl [70-99 mg/dL] 96 mg/dL 2 (05/04/2012 11:09:57) Total Protein [6.4-8.4 g/dL] 7.5 g/dL (05/04/2012 11:09:57) Albumin Lvl [3.5-5.0 g/dL] 3.7 g/dL (05/04/2012:09:57) Globulin [2.0-4.0 g/dL] 3.8 g/dL (05/04/2012:09:57) A/G Ratio [0.7-1.6] 1.0 (05/04/2012::57) Calcium Lvl [8.5-10.5 mg/dL] 8.6 mg/dL (05/04/2012:09:57) ALT [0-65 unit/L] 17 unit/L (05/04/2012::57) AST [0-37 unit/L] 25 unit/L (05/04/2012:09:57) Alk Phos [39-136 unit/L] 84 unit/L (05/04/2012::57) Bili Total [0.2-1.3 mg/dL] 0.5 mg/dL (05/04/2012:09:57) Lipase Lvl [73-393 unit/L] 158 unit/L (05/04/2012:09:57) Lactic Acid Lvl [0.5-2.2 mMol/L] 1.3 mMol/L (05/04/2012 11:09:04) Total CK [12-191 unit/L] 131 unit/L (05/04/2012:09:57) Troponin-I [0.00-0.40 ng/mL] <0.02 ng/mL (05/04/2012 11:09:57) 1Result Comment: The eGFR is calculated using [...] from the National Kidney Disease Education Program ( NKDEP) which additionally recommends that when the eGFR is used in patients with extremes of body mass index for purposes of drug dosing, the eGFR should be mul tiplied by the estimated BMI. 2Interpretive Data: Adult reference range values reflect the clinical guidelines of the [place] [employer]. HEMATOLOGY Most recent to oldest [Reference Range]: 1 WBC [3.7-10.4 K/CMM] 7.0 K/CMM (05/04/2012:09:57) RBC [4.70-6.10 M/CMM] 4.58 M/CMM *LOW* (05/04/2012::57) Hgb [14.0-18.0 g/dL] 14.3 g/dL (05/04/2012::57) Hct [42.0-54.0 %] 42.3 % (05/04/2012::57) MCV [80.0-94.0 fL] 92.3 fL (05/04/2012::57) MCH [27.0-31.0 pg] 31.1 pg *HI* (05/04/2012::57) MCHC [32.0-36.0 g/dL] 33.7 g/dL (05/04/2012::57) RDW [11.5-14.5 %] 13.1 % (05/04/2012::57) Platelet [133-450 K/CMM] 158 K/CMM (05/04/2012:09:57) MPV [7.4-10.4 fL] 7.8 fL (05/04/2012::57) Segs [45.0-75.0 %] 52.4 % (05/04/2012::57) Lymphocytes [20.0-40.0 %] 32.7 % (05/04/2012::57) Monocytes [2.0-12.0 %] 14.0 % *HI* (05/04/2012::57) Eosinophils [0.0-4.0 %] 0.6 % (05/04/2012::57) Basophils [0.0-1.0 %] 0.3 % (05/04/2012 11:09:57) Segs-Bands # [1.5-8.1 K/CMM] 3.7 K/CMM (05/04/2012 11:09:57) Lymphocytes # [1.0-5.5 K/CMM] 2.3 K/CMM (05/04/2012 11:09:57) Monocytes # [0.0-0.8 K/CMM] 1.0 K/CMM *HI* (05/04/2012 11:09:57) Eosinophils # [0.0-0.5 K/CMM] 0.0 K/CMM (05/04/2012 11:09:57) Basophils # [0.0-0.2 K/CMM] 0.0 K/CMM (05/04/2012 11:09:57) PT [12.0-14.7 seconds] 14.8 seconds *HI* (05/04/2012 11:09:38) INR [0.85-1.17] 1.14 3 (05/04/2012 11:09:38) PTT [22.9-35.8 seconds] 34.2 seconds 4 (05/04/2012 11:09:57) 3Interpretive Data: RECOMMENDED RANGES FOR PROTIME INR: 2.0-3.0 for most medical and surgical thromboembolic states. 2.5-3.5 for artificial heart valves and recurrent embolism. INR SHOULD BE USED ONLY FOR PATIENTS ON STABLE ANTICOAGULANT THERAPY. 4Interpretive Data: Heparin Therapeutic Range: 57 - 92 Seconds Procedures Procedures Date Related Diagnosis Cystectomy Nephrectomy
--- OUTSIDE RECORDS SUMMARY | 2018-02-10 05:27 | XMS REPORT | CCD ---
Author Author Auto Generated Organization [facility] Address Unknown Phone Unavailable Care Team Providers Care Metal Spinner Name Role Phone Patti Mccracken CP Allergies, Adverse Reactions, Alerts Substance Reaction Status NKDA Active Problem List Condition Effective Dates Status Aneurysm of aorta Resolved Bladder cancer Resolved Hypertension Active Medications Medication Instructions Start Date End Date Status [place] 5/325 oral 1 tab, PO, Q4-6H, PRN, 30 tab, 06/06/2012 Ordered tablet Substitution Allowed, Maintenance nabumetone 500 mg 500 mg, 1 tab, PO, BID, 180 tab, 06/06/2012 Ordered oral tablet Substitution Allowed, TAB simvastatin PO, Daily, 30 tab, Substitution 06/06/2012 07/06/2012 Ordered Allowed [place] 10/325 oral 1 tab, PO, Q6H, PRN, 24 tab, for 06/06/2012 Ordered tablet pain, Substitution Allowed, Maintenance cefpodoxime 200 mg 200 mg, 1 tab, PO, Q12H, 20 tab, 06/06/2012 06/16/2012 Ordered oral tablet Substitution Allowed, TAB Vital Signs Most recent to oldest [Reference Range]: 1 Height 177.8 cm (06/06/2012 13:08:00) Weight 77.273 kg (06/06/2012 13:08:00) Results URINALYSIS Most recent to oldest [Reference Range]: 1 UA Turbidity [Clear] Clear (06/06/2012 15:16:42) UA Color [Yellow] Yellow *NA* (06/06/2012 15:16:42) UA pH [5.0-8.0] 8.0 (06/06/2012 15:16:42) UA Spec Grav [<=1.030] 1.010 (06/06/2012 15:16:42) UA Glucose [Negative] Negative (06/06/2012 15:16:42) UA Blood [Negative] Trace *ABN* (06/06/2012 15:16:42) UA Ketones [Negative] Negative *NA* (06/06/2012 15:16:42) UA Protein [Negative] Trace *ABN* (06/06/2012 15:16:42) UA Urobilinogen [0.1-1.0 EU/dL] 0.2 EU/dL (06/06/2012 15:16:42) UA Bili [Negative] Negative *NA* (06/06/2012 15:16:42) UA Leuk Est [Negative] Trace *ABN* (06/06/2012 15:16:42) UA Nitrite [Negative] Positive *ABN* (06/06/2012 15:16:42) UA WBC [None Seen /HPF] 3-5 /HPF (06/06/2012 15:16:42) UA RBC [0-2 /HPF] 0-2 /HPF (06/06/2012 15:16:42) UA Bacteria [None Seen /HPF] Few /HPF (06/06/2012 15:16:42) UA Sq Epi [Few] None Seen (06/06/2012 15:16:42) UA Amorph Tiana [None Seen /HPF] Few /HPF *ABN* (06/06/2012 15:16:42) UA Renal Epi 3-5 /LPF *ABN* (06/06/2012 15:16:42) Micro? Performed (06/06/2012 15:16:42) Microbiology Reports PROCEDURE:Culture: Urine STATUS: Auth (Verified) BODY SITE: COLLECTED DATE/TIME: 06/06/2012 17:02:00 SOURCE: Urine, [place] FREE TEXT SOURCE: FINAL REPORTS Final Report >100,000 CFU/mL Gram Negative Rods, Non-Lactose Fermenters ; 2 Bumpass Types >100,000 CFU/mL Enterococcus Species >100,000 CFU/mL Skin [place] . Specimen contains 3 or more potential pathogens; recommend correlation with urinalysis; if catheterized specimen recommend removal and recollection. If clinical situation warrants please call the laboratory for further testing. PRELIMINARY REPORTS Preliminary Report [employer]
--- OUTSIDE RECORDS SUMMARY | 2018-02-10 05:27 | XMS REPORT | Summary of Care ---
Author Author [facility] Care [facility] Organization [facility] Address Unknown Phone Unavailable Encounter HQ Igorr_misbah(FIN) [id number] Date(s): 06/07/17 - 06/07/17 [facility] [address], [address] [place] [address]- [phone] Discharge Disposition: Home or Self Care Attending Physician: Isabell Perez MD Vital Signs Most recent to 1 oldest [Reference Range]: Height 167.64 cm (06/07/17 8:16 AM) Temperature Oral 97.4 DegF [96.4-99.1 DegF] (06/07/17 8:16 AM) Blood Pressure 116/73 mmHg [90-140/60-90 mmHg] (06/07/17 8:16 AM) Respiratory Rate 16 BRMIN [14-20 BRMIN] (06/07/17 8:16 AM) Peripheral Pulse 82 bpm Rate [60-100 bpm] (06/07/17 8:16 AM) Weight 72.955 kg (06/07/17 8:16 AM) Body Mass Index 25.96 m2 (06/07/17 8:16 AM) Problem List Condition Effective Dates Status Health Status Informant Aneurysm of Resolved aorta(Confirmed) Backache1, 2 Resolved Bladder Resolved cancer(Confirmed) CKD (chronic kidney Active disease), stage III(Confirmed) Deficiency of Active vitamin B12(Confirmed) Dermatitis3 04/05/13 Active Essential Active hypertension(Confirm ed)4 History of aortic Active aneurysm repair(Confirmed) History of bladder Active cancer(Confirmed) History of renal Active carcinoma(Confirmed) Hyperlipidemia(Confi Active rmed)5 Insomnia6 04/05/14 Active Cancer of right Resolved kidney.(Confirmed) Colon Active polyp(Confirmed) Prediabetes(Confirme Active d) Spinal stenosis7 Active Vitamin D Active deficiency(Confirmed ) 1Data migrated from [facility] on 09/15/14. 2Data migrated from [employer] on 09/14/14. 3Data migrated from [employer] on 07/28/14. 4Data migrated from [employer] on 07/28/14. 5Data migrated from [employer] on 07/28/14. 6Data migrated from [employer] on 09/05/14. 7Data migrated from [employer] on 07/28/14. Allergies, Adverse Reactions, Alerts Substance Reaction Severity Status NKDA Active Medications No Known Medications Results No data available for this section Immunizations Given and Recorded Vaccine Date Status Refusal Reason pneumococcal 13-valent vaccine 12/21/16 Given influenza virus vaccine, inactivated1 11/23/16 Given influenza virus vaccine, inactivated 01/01/16 Given influenza virus vaccine, inactivated 12/06/14 Given influenza virus vaccine, inactivated2 11/29/13 Given pneumococcal 23-valent vaccine3 06/29/13 Given 1Result Comment: Patient natalee din room ten minutes no allergic reaction. 2Result Comment: fluzone high dose [[id number]]. Migrated from OBS ; Data migrated from [employer] on 04/02/2015. 3Result Comment: pneumovax 23 [cvx33]. Migrated from OBS VIS: Pneumovax 23: 12-04-08 ; Data migrated from [employer] on 04/02/2015. Procedures Procedure Date Related Diagnosis Body Site Status Cholecystectomy 08/27/15 Completed Laparoscopic cholecystectomy 08/27/15 Completed Eye examination 11/2014 Completed Colonoscopy1 11/29/12 Completed AAA - Repair of abdominal aortic aneurysm 2007 Completed using straight graft Cystectomy2 1999 Completed Prostatectomy3 1999 Completed Hernia repair1986 Completed Nephrectomy5 1983 Completed 1Polypectomy Tubular Adenoma. Next 3 yrs. 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
--- OUTSIDE RECORDS SUMMARY | 2018-02-10 05:27 | XMS REPORT | Summary of Care ---
Author Author [facility] Primary Care [facility] Organization [facility] Address Unknown Phone Unavailable Encounter HQ Frederick_misbah(FIN) [id number] Date(s): 09/07/17 - 09/07/17 [facility] [address], [address] [place] [address]- [phone] Discharge Disposition: Home or Self Care Attending Physician: Isabell Perez MD Vital Signs Most recent to 1 oldest [Reference Range]: Height 170.18 cm (09/07/17 8:20 AM) Temperature Oral 97.3 DegF [96.4-99.1 DegF] (09/07/17 8:20 AM) Blood Pressure 123/70 mmHg [90-140/60-90 mmHg] (09/07/17 8:20 AM) Respiratory Rate 16 BRMIN [14-20 BRMIN] (09/07/17 8:20 AM) Peripheral Pulse 62 bpm Rate [60-100 bpm] (09/07/17 8:20 AM) Weight 72.273 kg (09/07/17 8:20 AM) Body Mass Index 24.96 m2 (09/07/17 8:20 AM) Problem List Condition Effective Dates Status [...] D Active deficiency(Confirmed ) 1[facility] on 09/15/14. 2Data migrated from [employer] on 09/14/14. 3Data migrated from [employer] on 07/28/14. 4Data migrated from [employer] on 07/28/14. 5Data migrated from [employer] on 07/28/14. 6Data migrated from [employer] on 09/05/14. 7Data migrated from [employer] on 07/28/14. Allergies, Adverse Reactions, Alerts Substance Reaction Severity Status NKDA Active Medications metoprolol 25 mg oral tablet, extended release 25 mg=1 tab, PO, BID, # 180 tab, 1 Refill(s), Pharmacy: [facility]/pharmacy #[id number] Start Date: 09/07/17 Stop Date: 03/06/18 Status: Ordered simvastatin 20 mg oral tablet 20 mg=1 tab, PO, Bedtime, # 90 tab, 1 Refill(s), Pharmacy: [facility]/pharmacy #[id number], d ose decrease 40 from 20 mg Start Date: 09/07/17 Status: Ordered Results No data available for this section [...] allergic reaction. 2Result Comment: fluzone high dose [[id number]]. Migrated from OBS ; Data migrated from [employer] on 04/02/2015. 3Result Comment: pneumovax 23 [cvx33]. Migrated from OBS VIS: Pneumovax 23: 12-04-08 ; Data migrated from [employer] on 04/02/2015. Procedures Procedure Date Related Diagnosis Body Site Status Cholecystectomy 08/27/15 Completed Laparoscopic cholecystectomy 08/27/15 Completed Eye examination 11/2014 Completed Colonoscopy1 11/29/12 Completed AAA - Repair of abdominal aortic aneurysm 2007 Completed using straight graft Cystectomy2 1999 Completed Prostatectomy3 1999 Completed Hernia repair4 1986 Completed Nephrectomy5 1983 Completed 1Polypectomy Tubular Adenoma. [...]
--- OUTSIDE RECORDS SUMMARY | 2018-02-10 05:27 | XMS REPORT | Summary of Care ---
Author Author [facility] Organization [facility] Address Unknown Phone Unavailable Encounter HQ Kayy(FIN) [id number] Date(s): 02/02/17 - 02/02/17 [facility] [address], [address] [place], [place] [address]- [phone] Discharge Disposition: Home or Self Care Attending Physician: Isabell Perez MD Vital Signs Most recent to 1 oldest [Reference Range]: Height 170.18 cm (02/02/17 7:49 AM) Temperature Oral 97.6 DegF [96.4-99.1 DegF] (02/02/17 7:49 AM) Blood Pressure 108/59 mmHg [90-140/60-90 mmHg] (02/02/17 7:49 AM) Respiratory Rate 14 BRMIN [14-20 BRMIN] (02/02/17 7:49 AM) Peripheral Pulse 66 bpm Rate [60-100 bpm] (02/02/17 7:49 AM) Weight 71.932 kg (02/02/17 7:49 AM) Body Mass Index 24.84 m2 (02/02/17 7:49 AM) Problem List Condition Effective Dates Status [...] D Active deficiency(Confirmed ) 1Data migrated from [facility] on 09/15/14. 2Data migrated from [employer] [...] BID, # 180 tab, 1 Refill(s), Pharmacy: [facility]/pharmacy #[id number] Start Date: 02/02/17 Stop Date: 08/01/17 Status: Ordered simvastatin 20 mg oral tablet 20 mg=1 tab, PO, Bedtime, # 90 tab, 1 Refill(s), Pharmacy: [facility]/pharmacy #[id number], d ose decrease 40 from 20 mg Start Date: 02/02/17 Status: Ordered Results No data available for [...] allergic reaction. 2Result Comment: fluzone high dose [[id number]]. Migrated from OBS ; Data migrated from [employer] on 04/02/2015. 3Result Comment: pneumovax 23 [cvx33]. Migrated from OBS VIS: Pneumovax 23: 12-04-08 ; Data migrated from [employer] on 04/02/2015. Procedures Procedure Date Related Diagnosis Body Site Cholecystectomy 08/27/15 Laparoscopic cholecystectomy 08/27/15 Eye examination 11/2014 Colonoscopy1 11/29/12 AAA - Repair of abdominal aortic aneurysm 2007 using straight graft Cystectomy2 1999 Prostatectomy3 1999 Hernia repair4 1986 Nephrectomy5 1983 1Polypectomy Tubular Adenoma. Next 3 yrs. 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
--- OUTSIDE RECORDS SUMMARY | 2018-02-10 05:27 | XMS REPORT | Summary of Care ---
Author Author [facility] Primary Care [facility] Organization [facility] Address Unknown Phone Unavailable Encounter HQ Igorr_misbah(FIN) [id number] Date(s): 06/07/17 - 06/07/17 [facility] [address], [address] [place] [address]- [phone] Discharge Disposition: Home or Self Care Attending [...] D Active deficiency(Confirmed ) 1Data migrated from [facility] on 09/15/14. 2Data migrated from [employer] [...] allergic reaction. 2Result Comment: fluzone high dose [[id number]]. Migrated from OBS ; Data migrated from [...]
--- OUTSIDE RECORDS SUMMARY | 2018-02-10 05:27 | XMS REPORT | Summary of Care ---
Author Author [facility] Organization [facility] Address Unknown Phone Unavailable Encounter HQ Kayy(HUBER) [id number] Date(s): 12/17/16 - 12/21/16 [facility] [address] [place] [address]- Discharge Disposition: Home or Self Care Attending Physician: Isabell Ken MD Admitting Physician: Isabell Ken MD Vital Signs 1 2 3 Most recent to oldest [Reference Range]: 170.18 cm (12/17/16 5:08 PM) 170.18 cm (12/17/16 9:36 AM) Height 98.0 DegF (12/21/16 11:03 AM) 97.4 DegF (12/21/16 7:19 AM) 98.5 DegF (12/21/16 3:18 AM) Temperature Oral [96.4-99.1 DegF] 146/72 mmHg *HI* (12/21/16 11:03 AM) 145/63 mmHg *HI* (12/21/16 7:19 AM) 139/72 mmHg (12/21/16 3:18 AM) Blood Pressure [90-140/60-90 mmHg] 16 BRMIN (12/21/16 11:03 AM) 16 BRMIN (12/21/16 7:19 AM) 16 BRMIN (12/21/16 3:18 AM) Respiratory Rate [14-20 BRMIN] 57 bpm *LOW* (12/21/16 11:03 AM) 56 bpm *LOW* (12/21/16 7:19 AM) 59 bpm *LOW* (12/21/16 3:18 AM) Peripheral Pulse Rate [60-100 bpm] 73.636 kg (12/17/16 5:08 PM) 73.182 kg (12/17/16 9:36 AM) Weight 25.43 m2 (12/17/16 5:08 PM) 25.27 m2 (12/17/16 9:36 AM) Body Mass Index Problem List Condition Effective Dates Status Health Status Informant Aneurysm of Resolved aorta(Confirmed) Backache1, 2 Resolved Bladder Resolved cancer(Confirmed) Chronic kidney 11/02/13 Active disease stage 3(Confirmed)3 Deficiency of Active vitamin B12(Confirmed) Dermatitis4 04/05/13 Active Essential Active hypertension(Confirm ed)5 History of aortic Active aneurysm repair(Confirmed) History of bladder Active cancer(Confirmed) History of renal Active carcinoma(Confirmed) Hyperlipidemia(Confi Active rmed)6 Insomnia7 04/05/14 Active Cancer of right Resolved kidney.(Confirmed) Colon Active polyp(Confirmed) Prediabetes(Confirme Active d) Spinal stenosis8 Active Vitamin D Active deficiency(Confirmed ) 1Data migrated from [employer] on 09/15/14. 2Data migrated from [employer] on 09/14/14. 3Data migrated from [employer] on 07/28/14. 4Data migrated from [employer] on 07/28/14. 5Data migrated from [employer] on 07/28/14. 6Data migrated from [employer] on 07/28/14. 7Data migrated from [employer] on 09/05/14. 8Data migrated from [employer] on 07/28/14. Allergies, Adverse Reactions, Alerts Substance Reaction Severity Status NKDA Active Medications acetaminophen-hydrocodone 325 mg-5 mg oral tablet 1 tab, Route: PO, Drug Form: TAB, Dosing Weight 73.182, kg, Q4H, PRN Pain Score 4-6, Start date: 12/17/16 15:35:00 CDT, Duration: 30 day, Stop date: 01/16/17 15 :34:00 IT PROGRAM AUDITOR Notes: (Same as: [place] 325/5) Do not exceed 4gm/day of acetaminophen. Start Date: 12/17/16 Stop Date: 12/21/16 Status: Discontinued amoxicillin 500 mg oral capsule 500 mg=1 cap, PO, TID, X 5 day, # 15 cap, 0 Refill(s), Pharmacy: [facility]/pharmacy #[id number] Start Date: 12/21/16 Stop Date: 12/26/16 Status: Ordered cefepime 1 gm, Route: IVPB, Q12H, Dosing Weight 73.182, kg, (CrCl >/=50 ml/min), Start date: 12/17/16 21:00:00 CDT, Duration: 5 day, Stop date: 12/22/16 9:00:00 CDT, ABX Indication: Urinary Tract Infection Start Date: 12/17/16 Stop Date: 12/17/16 Status: Deleted cefepime + sodium chloride 0.9% INJ 100 mL 1 gm, Route: IV, [id number], Dosing Weight 73.182, kg, Start date: 12/17/16 20:00:0 0 CDT, Duration: 30 day, Stop date: 01/16/17 8:00:00 IT PROGRAM AUDITOR, ABX Indication: Urinar y Tract Infection Notes: (Same As: Maxipime) MEDICATION WASTE Product Size: 1000 mgProduc t Wasted: ___ 0mg Start Date: 12/17/16 Stop Date: 12/21/16 Status: Discontinued cefepime + sodium chloride 0.9% INJ 100 mL 1 gm, Route: IVPB, ONCE, Dosing Weight 73.182, kg, Priority: STAT, Start date: 1 11:32:00 CDT, Duration: 1 doses or times, Stop date: 12/17/16 11:32:00 C DT, ABX Indication: Urinary Tract Infection Notes: (Same As: Maxipime) MEDICATION WASTE Product Size: 1000 mgProduc t Wasted: ___ mg Start Date: 12/17/16 Stop Date: 12/17/16 Status: Completed docusate 100 mg, 1 cap, Route: PO, Drug form: CAP, BID, Dosing Weight 73.182, kg, Start d ate: 12/17/16 17:00:00 CDT, Duration: 30 day, Stop date: 01/16/17 9:00:00 IT PROGRAM AUDITOR Notes: (Same as: Colace) (Do Not Crush) Start Date: 12/17/16 Stop Date: 12/21/16 Status: Discontinued metoprolol extended release 25 mg, 1 tab, Route: PO, Drug form: ERTAB, BID, Start date: 12/17/16 17:00:00 CD T, Duration: 30 day, Stop date: 01/16/17 9:00:00 IT PROGRAM AUDITOR Notes: (Same as: Toprol XL) Do Not Crush Start Date: 12/17/16 Stop Date: 12/21/16 Status: Discontinued ondansetron 4 mg, 2 mL, Route: IVP, Drug form: INJ, Q6H, Dosing Weight 73.182, kg, PRN Nause a & Vomiting, Start date: 12/17/16 15:35:00 CDT, Duration: 30 day, Stop date: 01/16/17 15:34:00 IT PROGRAM AUDITOR Notes: (Same as: Zofran) MEDICATION WASTE Product Size: 4 mgProduct Was tiffani: _0__ mg Start Date: 12/17/16 Stop Date: 12/21/16 Status: Discontinued pneumococcal 13-valent vaccine 0.5 mL, Route: IM, Drug Form: INJ, Daily, Start date: 12/21/16 14:45:00 CDT, Dur ation: 1 doses or times, Stop date: 12/21/16 14:45:00 CDT Notes: Shake well prior to use (Same as: Prevnar 13) Start Date: 12/21/16 Stop Date: 12/21/16 Status: Completed simvastatin 40 mg, 1 tab, Route: PO, Drug form: TAB, Bedtime, Dosing Weight 73.182, kg, Star t date: 12/17/16 21:00:00 CDT, Duration: 30 day, Stop date: 01/15/17 21:00:00 CS T Notes: (Same as: Zocor) Start Date: 12/17/16 Stop Date: 12/21/16 Status: Discontinued Sodium Chloride 0.9% (Bolus) IV 1,000 mL, Infuse Over: 1 hr, Route: IV, ONCE, Priority: STAT, Dosing Weight 73.1 82 kg, Start date: 12/17/16 10:30:00 CDT, Duration: 1 doses or times, Stop date: 12/17/16 10:30:00 CDT Start Date: 12/17/16 Stop Date: 12/17/16 Status: Completed sodium chloride 0.9% 1000 ml INJ 1,000 mL 1,000 mL, Rate: 100 ml/hr, Infuse over: 10 hr, Route: IV, Dosing Weight 73.182 k g, Total Volume: 1,000, Start date: 12/17/16 15:36:00 CDT, Duration: 30 day, Sto p date: 01/16/17 15:35:00 IT PROGRAM AUDITOR Start Date: 12/17/16 Stop Date: 12/21/16 Status: Discontinued vancomycin 1,250 mg, 250 mL, Route: IVPB, Drug form: INJ, [id number], Dosing Weight 73.182, kg , Start date: 12/17/16 16:00:00 CDT, Stop date: 12/21/16 17:00:00 CDT, ABX Indic ation: Urinary Tract Infection Notes: TIME CRITICAL MEDICATIONSame as: Vancocin-NS (premixed)Infusion rate< 1000 mg: infuse over 1 [id number] - 1500 mg: infuse over 1.5 [id number] - 2000 mg: infuse over 2 hours> 2001 mg: infuse over 2.5 hours Start Date: 12/17/16 Stop Date: 12/21/16 Status: Pending Complete Vancomycin Pharmacy Dosing 1 ea, Route: MISC, ONCALL, Dosing Weight 73.182, kg, Start date: 12/17/16 16:00: 00 CDT, day, Stop date: 12/17/16 16:00:00 CDT, Pharmacy to dose, ABX Indication: Urinary Tract Infection Start Date: 12/17/16 Stop Date: 12/17/16 Status: Canceled Results ELECTROLYTES Most recent to 1 2 oldest [Reference Range]: Sodium Lvl [135-145 138 mEq/L 132 mEq/L mEq/L] (12/19/16 4:48 AM) *LOW* (12/17/16 10:36 AM) Potassium Lvl 4.0 mEq/L 4.0 mEq/L [3.5-5.1 mEq/L] (12/19/16 4:48 AM) (12/17/16 10:36 AM) Chloride Lvl [95-109 107 mEq/L 97 mEq/L mEq/L] (12/19/16 4:48 AM) (12/17/16 10:36 AM) CO2 [24-32 mEq/L] 22 mEq/L 24 mEq/L *LOW* (12/17/16 10:36 AM) (12/19/16 4:48 AM) AGAP [10.0-20.0 13.0 mEq/L 15.0 mEq/L mEq/L] (12/19/16 4:48 AM) (12/17/16 10:36 AM) CHEM PANEL Most recent to 1 2 oldest [Reference Range]: Creatinine Lvl 0.84 mg/dL 1.40 mg/dL [0.50-1.40 mg/dL] (12/19/16 4:48 AM) (12/17/16 10:36 AM) eGFR 82 mL/min/1.73m2 1 46 mL/min/1.73m2 2 *NA* *NA* (12/19/16 4:48 AM) (12/17/16 10:36 AM) BUN [7-22 mg/dL] 17 mg/dL 22 mg/dL (12/19/16 4:48 AM) (12/17/16 10:36 AM) B/C Ratio [6-25] 16 (12/17/16 10:36 AM) Glucose Lvl [70-99 81 mg/dL 125 mg/dL mg/dL] (12/19/16 4:48 AM) *HI* (12/17/16 10:36 AM) Total Protein 7.3 g/dL [6.4-8.4 g/dL] (12/17/16 10:36 AM) Albumin Lvl [3.5-5.0 3.1 g/dL g/dL] *LOW* (12/17/16 10:36 AM) Globulin [2.7-4.2 4.2 g/dL g/dL] (12/17/16 10:36 AM) A/G Ratio [0.7-1.6] 0.7 (12/17/16 10:36 AM) Calcium Lvl 7.8 mg/dL 8.5 mg/dL [8.5-10.5 mg/dL] *LOW* (12/17/16 10:36 AM) (12/19/16 4:48 AM) ALT [0-65 unit/L] 20 unit/L (12/17/16 10:36 AM) AST [0-37 unit/L] 33 unit/L (12/17/16 10:36 AM) Alk Phos [39-136 63 unit/L unit/L] (12/17/16 10:36 AM) Bili Total [0.2-1.3 0.6 mg/dL mg/dL] (12/17/16 10:36 AM) Lipase Lvl [73-393 106 unit/L unit/L] (12/17/16 10:36 AM) 1Result Comment: The eGFR is calculated using [...] be mul tiplied by the estimated BMI. 2Result Comment: The eGFR is calculated using the [...] be mul tiplied by the estimated BMI. TOXICOLOGY Most recent to 1 2 oldest [Reference Range]: Vanco Tr TND 1630 *NA* (12/19/16 4:58 PM) Vanco Tr 7.5 ug/ml *NA* (12/19/16 4:58 PM) URINE AND STOOL Most recent to 1 2 oldest [Reference Range]: UA Turbidity [Clear] Clear (12/17/16 10:36 AM) UA Color Ltyellow *NA* (12/17/16 10:36 AM) UA pH [5.0-8.0] 7.0 (12/17/16 10:36 AM) UA Spec Grav 1.010 [<=1.030] (12/17/16 10:36 AM) UA Glucose [Negative Negative mg/dL mg/dL] *NA* (12/17/16 10:36 AM) UA Blood [Negative] Moderate *ABN* (12/17/16 10:36 AM) UA Ketones [Negative Trace mg/dL mg/dL] *ABN* (12/17/16 10:36 AM) UA Protein [Negative Negative mg/dL mg/dL] (12/17/16 10:36 AM) UA Urobilinogen <=1.0 mg/dL [0.1-1.0 mg/dL] *NA* (12/17/16 10:36 AM) UA Bili [Negative] Negative *NA* (12/17/16 10:36 AM) UA Leuk Est Moderate [Negative] *ABN* (12/17/16 10:36 AM) UA Nitrite Negative [Negative] (12/17/16 10:36 AM) UA WBC [0-5 /HPF] 15 /HPF *HI* (12/17/16 10:36 AM) UA RBC [0-2 /HPF] 4 /HPF *HI* (12/17/16 10:36 AM) UA Bacteria [None Occasional /HPF Seen /HPF] *NA* (12/17/16 10:36 AM) UA Sq Epi [Few /LPF] Occasional /LPF *NA* (12/17/16 10:36 AM) UA Hyal Cast [0-2 1 /LPF /LPF] (12/17/16 10:36 AM) UA [place] Yeast [None Occasional /HPF Seen /HPF] *ABN* (12/17/16 10:36 AM) Occult Bld Stl Negative [Negative] (12/17/16 12:49 PM) HEMATOLOGY Most recent to 1 2 oldest [Reference Range]: WBC [3.7-10.4 K/CMM] 14.3 K/CMM *HI* (12/17/16 10:36 AM) RBC [4.70-6.10 4.20 M/CMM M/CMM] *LOW* (12/17/16 10:36 AM) Hgb [14.0-18.0 g/dL] 12.6 g/dL *LOW* (12/17/16 10:36 AM) Hct [42.0-54.0 %] 37.9 % *LOW* (12/17/16 10:36 AM) MCV [80.0-94.0 fL] 90.4 fL (12/17/16 10:36 AM) MCH [27.0-31.0 pg] 30.0 pg (12/17/16 10:36 AM) MCHC [32.0-36.0 33.2 g/dL g/dL] (12/17/16 10:36 AM) RDW [11.5-14.5 %] 14.1 % (12/17/16 10:36 AM) Platelet [133-450 122 K/CMM K/CMM] *LOW* (12/17/16 10:36 AM) MPV [7.4-10.4 fL] 8.0 fL (12/17/16 10:36 AM) Segs [45.0-75.0 %] 89.5 % *HI* (12/17/16 10:36 AM) Lymphocytes 3.4 % [20.0-40.0 %] *LOW* (12/17/16 10:36 AM) Monocytes [2.0-12.0 7.0 % %] (12/17/16 10:36 AM) Basophils [0.0-1.0 0.1 % %] (12/17/16 10:36 AM) Segs-Bands # 12.8 K/CMM [1.5-8.1 K/CMM] *HI* (12/17/16 10:36 AM) Lymphocytes # 0.5 K/CMM [1.0-5.5 K/CMM] *LOW* (12/17/16 10:36 AM) Monocytes # [0.0-0.8 1.0 K/CMM K/CMM] *HI* (12/17/16 10:36 AM) Immunizations Given and Recorded Vaccine Date Status Refusal Reason influenza virus vaccine, inactivated1 11/23/16 Given influenza virus vaccine, inactivated 01/01/16 Given influenza virus vaccine, inactivated 12/06/14 Given influenza virus vaccine, inactivated2 11/29/13 Given pneumococcal 13-valent vaccine 12/21/16 Given pneumococcal 23-valent vaccine3 06/29/13 Given 1Result Comment: Patient natalee din room ten minutes no allergic reaction. 2Result Comment: fluzone high dose [[id number]]. Migrated from OBS ; Data migrated from [employer] on 04/02/2015. 3Result Comment: pneumovax 23 [[id number]]. Migrated from OBS VIS: Pneumovax 23: 12-04-08 ; Data migrated from [employer] on 04/02/2015. Procedures Procedure Date Related Diagnosis Body Site Cholecystectomy 08/27/15 Laparoscopic cholecystectomy 08/27/15 Eye examination 11/2014 Colonoscopy1 11/29/12 AAA - Repair of abdominal aortic aneurysm 2007 using straight graft Cystectomy2 1999 Prostatectomy1999 Hernia repair4 1986 Nephrectomy1983 1Polypectomy Tubular Adenoma. Next 3 yrs. 2Urothelia carcinoma/Bladder cancer 3Due to bladder cancer 4Vertial Hernia 5right kidney cancer Social History Social History Type Response Alcohol Past Smoking Status Former smoker; Type: Cigarettes; Stopped at age: 49; Exposure to Tobacco Smoke None; Cigarette Smoking Last 365 Days No; Reg Smoking Cessation Counseling No Assessment and Plan Extracted from: Title: Progress Note * Author: Isabell Ken MD Date: 12/20/16 Impression and Plan - Acute Enterococcus cytitis Urinary tract infection Chronic kidney disease at stage III Hyponatremia Hypovolemic Hyperglycemia History of bladder cell carcinoma History of renal cell carcinoma Fever and chills have improved. Urine and blood cultures are still pending. Continue abx. Hemoglobin is between 12-13 and stool studies are negative for occult blood (rectal exam is negative for any melanotic appearing stool). DVT prophylaxis: Heparin Disposition: Pending cultures, discharged after susceptibilities are known. Microbiology is delaying discharge Extracted from: Title: Clinical Document Author: Marshall Hansen MD Date: 12/17/16 Date of admission: Reason for admission 1. Urinary tract infection 2. Melena (reported) History of present illness Mr. Pandey is an 81-year-old man with past medical history of bladder cancer and renal cell carcinoma currently without evidence of disease for both cancer who is brought in by family for evaluation of fever and chills. For the past 3 days patient has been having fever and chills. Patient was taken to the local primary care physician who diagnosed the patient with having "urinary tract infection "based on urinalysis from his ileostomy bag. Patient was started on Levaquin and was given "1 shot of antibiotic" in the clinic. However, patient continued to have fever and chills overnight. Patient reports that he has been quite nauseated and vomiting. Over the past 2-3 days, he has noticed having significant black tarry stools. Patient has never had this issue in the past before. Patient is not on any anticoagulant agents and is only taking a baby aspirin. Currently, patient denies having any pain at the ileostomy site. Denies having abdominal pain or cramping. Patient reports the diarrhea is mostly the frequent tarry stools he is having. He has not had any tarry stools for the past 12 hours now. Past medical history 1. Primary hypertension 2. Borderline diabetes mellitus 3. Bladder cancer for which she had cystectomy 8 years ago 4. Left renal cell carcinoma for which she had nephrectomy 15 years ago Medications At Home 1. Metoprolol extended release 25 mg twice daily. 2. Simvastatin 40 mg daily. 3. B12 vitamin. Past surgical history 1. Cystectomy for bladder cancer 8 years ago 2. Left nephrectomy for renal cell carcinoma. Next Social history 1. Denies any tobacco or alcohol use. Next Allergies: No known drug allergies Review systems: As per HPI Family history: Reviewed but noncontributory Physical examination Vitals: Blood pressure 124/60, heart rate 72, respiratory 21, 96% room air. General: Awake alert oriented no acute distress. HEENT: No JVD or scleral icterus. Neurological no facial asymmetry moving all extremity as well. Cardia vascular: Regular rhythm S1-S2 Lungs: Clear to auscultation bilaterally. Abdomen: Soft nontender no rebound or guarding. Ileostomy bag is seen which has mildly cloudy but mostly clear yellow urine. No rebound or guarding at the ileostomy site or elsewhere. Bowel sounds are present. Extremity's: No peripheral edema seen. Skin: No skin rashes are seen. Rectal exam: No stool could be found there is some brown stool but no tarry stools are seen. Next Laboratory data Sodium 132, chloride 97, creatinine 1.4, glucose 125, white blood cell count 14, hemoglobin of 12.6, platelet count 122, urinalysis showing leukocyte esterase and white blood cell count of 15. Stool study occult blood is negative. Assessment and plan Mr. Pandey is a 81-year-old man who comes in for evaluation of fever and chills and preliminary diagnosis of urinary tract infection by his primary care physician in the clinic. Next Urinary tract infection Start patient on Cefepime and Vanco due to chronic kidney disease. Awaiting cultures. Chronic kidney disease stage III Avoid nephrotoxins. Continue IV fluids. Hyponatremia Likely due to low oral intake for the past 3-4 days during time of acute illness. Continue IV fluids. Hyperglycemia Patient is a borderline diabetic. We will monitor blood glucose closely. Melanotic stool reported Melanotic stools not seen on rectal exam Stool occult test is negative. Discharge hemoglobin is steady at 12 likely due to hemodilution from baseline of 13. DVT prophylaxis: SCDs Disposition: Pending above treatment.
[2018-02-10 07:45] VITALS: BP 112/73
== END | disposition home or self-care (01) ==
LOC: OR 05:23
PROVIDERS: ATTEND Internal Medicine Gastroenterology
DX: Z09 Encounter for follow-up examination after completed treatment for conditions other than malignant neoplasm (principal); K57.30 Diverticulosis of large intestine without perforation or abscess without bleeding; K64.8 Other hemorrhoids; Z71.3 Dietary counseling and surveillance; E66.3 Overweight; I10 Essential (primary) hypertension; E78.00 Pure hypercholesterolemia, unspecified; Z01.810 Encounter for preprocedural cardiovascular examination; Z01.812 Encounter for preprocedural laboratory examination; Z79.82 Long term (current) use of aspirin; Z68.26 Body mass index [BMI] 26.0-26.9, adult; Z90.5 Acquired absence of kidney; Z90.79 Acquired absence of other genital organ(s); Z85.46 Personal history of malignant neoplasm of prostate; Z85.528 Personal history of other malignant neoplasm of kidney; Z87.891 Personal history of nicotine dependence
CPT/HCPCS: 36415; 45378; 85025; 93005